=== PATIENT | male | born 1960 | race Asian ===

== ENCOUNTER → 2020-10-10 | Outpatient (CLI) | payer BC | LOC: US 12:32 | PROVIDERS: ATTEND Otolaryngology | DX: R22.1 Localized swelling, mass and lump, neck (principal) | CPT/HCPCS: 10005; 88112; 88172; 88173; 88305 ==

== ENCOUNTER 2021-02-22 05:30 | Observation (INO) | payer BC ==
[2021-02-20 08:46] LABS: BASOPHILS # (AUTO) 0.1 (0.0-0.1); BASOPHILS % 0.9 % (0.0-1.0); EOSINOPHILS # (AUTO) 0.5 (0.0-0.4); HEMATOCRIT 43.7 % (38.2-49.6); HEMOGLOBIN 14.5 g/dL (14.0-18.0); MEAN CORPUSCULAR HGB CONC 33.2 g/dL (31-35); MEAN CORPUSCULAR VOLUME 93.4 fL (81-99); MONOCYTES % 10.1 % (4.4-11.3); NEUTROPHILS # (AUTO) 5.4 (2.1-6.9); NEUTROPHILS % 53.6 % (38.7-80.0); PLATELET COUNT 301 x10e3/uL (140-360); RED BLOOD COUNT 4.68 x10e6/uL (4.3-5.7); RED CELL DISTRIBUTION WIDTH 12.8 % (11.7-14.4)
[2021-02-20 09:15] LABS: ANION GAP 12.8 mmol/L (8-16); BLOOD UREA NITROGEN 26 mg/dL (7-26); BUN/CREATININE RATIO 33 (6-25); CALCIUM 8.5 mg/dL (8.4-10.2); CARBON DIOXIDE 21 mmol/L (22-29); CHLORIDE 107 mmol/L (98-107); CREATININE, SERUM 0.78 mg/dL (0.72-1.25); EST GLOMERULAR FILTRATION RATE > 60 ML/MIN (60-); GLUCOSE 80 mg/dL (74-118); POTASSIUM 3.8 mmol/L (3.5-5.1); SODIUM 137 mmol/L (136-145)
[~2021-02-22] VITALS: Ht 167.6 cm; Wt 68.0 kg
[~2021-02-22 05:30] MED LIST: AMLODIPINE BESYL5 MG PO; FENOFIBRATE145 MG PO; IRBESARTAN-HCT1 EAC1 PO; JARDIANCE25 MG PO; LIPITOR10 MG PO; METFORMIN HCL500 MG PO; PLAVIX75 MG PO
[2021-02-22] MEDS ORDERED: ACETAMINOPHEN 1000 MG/100 ML 100 ML IV ONE (07:09)
[2021-02-22] MEDS ORDERED: LIDOCAINE HCL (LTA) 4 ML SOLN ONE (07:10)
[2021-02-22] MEDS ORDERED: OXYMETAZOLINE HCL 0.05% NAS 1 SPRAY BTL ONE (09:35)
[2021-02-22] MEDS ORDERED: SODIUM CHLORIDE 0.9% INJ 10 ML VIAL ONE (10:24)
[2021-02-22] MEDS ORDERED: EPINEPHRINE HCL 1:1000 1ML 1 MG/ML AMP ONE (10:24)
[2021-02-22 11:36] VITALS: BP 154/83
[2021-02-22 11:48] VITALS: BP 154/83
[2021-02-22] MEDS ORDERED: VASCEPA1 GM PO (11:48)
[2021-02-22] MEDS ORDERED: DEXAMETHASONE SOD PHOS INJ 4 MG/ML VIAL ONE (12:32)
[2021-02-22] MEDS ORDERED: EPHEDRINE SULFATE INJ 50 MG/ML VIAL ONE (12:32)
[2021-02-22] MEDS ORDERED: ROCURONIUM BROMIDE 10 MG/ML 5ML VIAL IV ONE (12:32)
[2021-02-22] MEDS ORDERED: ONDANSETRON HCL INJ 2MG/ML 2ML 2 MG/ML VIAL ONE (12:32)
[2021-02-22] MEDS ORDERED: SEVOFLURANE INHAL SOLN 250 ML PEN BTL ONE (12:32)
[2021-02-22] MEDS ORDERED: PROPOFOL IV EMULSION 10 MG/ML 20 ML VIAL ONE (12:32)
[2021-02-22] MEDS ORDERED: LIDOCAINE HCL 2% LOCAL INJ 5 ML SDV VIAL INJ ONE (12:32)
[2021-02-22] MEDS ORDERED: SUCCINYLCHOLINE CHLORIDE 20 MG/ML 10ML VIAL ONE (12:32)
[2021-02-22] MEDS ORDERED: LIDOCAINE HCL 2% JELLY 5 ML TUBE ONE (12:32)
[2021-02-22] MEDS ORDERED: ONDANSETRON HCL INJ 2MG/ML 2ML 2 MG/ML VIAL IV PRN (13:15)
[2021-02-22] MEDS ORDERED: HYDROCODONE/APAP 5MG-325MG TAB PO PRN ×2 (13:15)
[2021-02-22] MEDS ORDERED: FENTANYL CITRATE/PF 100MCG/2 ML INJ ONE (13:18)
[2021-02-22] MEDS ORDERED: MIDAZOLAM HCL 2 MG/2 ML VIAL ONE (13:18)
[2021-02-22] MEDS ORDERED: CEFAZOLIN SOD 1 GM VIAL IV SCH (14:00)
[2021-02-22] MEDS: SOD CHL 0.45%/POT CHL 20MEQ 1,000 ML IV SCH ×2 (15:37→23:30)
[2021-02-22] MEDS: CEFAZOLIN SOD 1 GM/NS 50ML 50 ML IV SCH ×2 (15:38→21:11)
[2021-02-22 16:12] VITALS: BP 125/79
[2021-02-22 20:00] VITALS: BP 115/72
[2021-02-22 20:10] VITALS: BP 115/72
[2021-02-22] MEDS ORDERED: ATORVASTATIN 20 MG TAB PO SCH (21:00)
[2021-02-23] VITALS: BP 126/67
[2021-02-23 04:00] VITALS: BP 128/67
[2021-02-23] MEDS: SOD CHL 0.45%/POT CHL 20MEQ 1,000 ML IV SCH (06:45)
[2021-02-23 08:14] VITALS: BP 141/72
[2021-02-23 08:59] VITALS: BP 141/72
[2021-02-23] MEDS ORDERED: IRBESARTAN 150 MG TAB PO SCH (09:00)
[2021-02-23] MEDS ORDERED: HOME MEDICATION--PATIENTS OWN PO SCH ×2 (09:00)
[2021-02-23] MEDS ORDERED: AMLODIPINE BESYLATE 5 MG TAB PO SCH (09:00)
[2021-02-23] MEDS ORDERED: HYDROCHLOROTHIAZIDE 25 MG TAB PO SCH (09:00)
[2021-02-23] MEDS ORDERED: METFORMIN HCL 500 MG TAB PO SCH (09:00)
[2021-02-23] MEDS: CEFAZOLIN SOD 1 GM/NS 50ML 50 ML IV SCH (09:15)
== END 2021-02-23 09:47 | disposition home or self-care (01) ==
LOC: OR 05:30 → PACU V 10:14 → MED/SURG 11:09
PROVIDERS: ADMIT Otolaryngology; ATTEND Otolaryngology
DX: D11.0 Benign neoplasm of parotid gland (principal); J38.7 Other diseases of larynx; I25.10 Atherosclerotic heart disease of native coronary artery without angina pectoris; I12.9 Hypertensive chronic kidney disease with stage 1 through stage 4 chronic kidney disease, or unspecified chronic kidney disease; N18.4 Chronic kidney disease, stage 4 (severe); Z20.822 Contact with and (suspected) exposure to COVID-19; Z01.818 Encounter for other preprocedural examination
CPT/HCPCS: 31541; 36415 ×3; 42410; 71046; 80048; 82948 ×2; 85025; 86850; 86900; 88305; 88307; 88331; 93005; G0378 ×2; J0131; J0171; J0330; J0690 ×2; J1100; J2001 ×2; J2250; J2405; J2704; J3010; U0002; 88172; 88173

== ENCOUNTER → 2021-10-23 | Outpatient (CLI) | payer BC ==
[~2021-10-23] MED LIST changes: +LIDOCAINE HCL 1% LOCAL INJ 20 ML VIAL ONE; +VASCEPA1 GM PO
== END ==
LOC: US 08:28
PROVIDERS: ATTEND Otolaryngology
DX: R59.0 Localized enlarged lymph nodes (principal)
CPT/HCPCS: 38505; 76942; 88173; 88305; J2001; 88112

== ENCOUNTER → 2024-12-21 | Outpatient (REF) | payer MEDICARE, OTHER ==
[~2024-12-21] MED LIST changes: +LIDOCAINE HCL 1% 30ML-PF VIAL ONE; -LIDOCAINE HCL 1% LOCAL INJ 20 ML VIAL ONE
== END ==
LOC: US 10:11
PROVIDERS: ATTEND Otolaryngology
DX: R22.1 Localized swelling, mass and lump, neck (principal)
CPT/HCPCS: 10005; 88172; 88173; 88305; J2003; 88112

== ENCOUNTER 2025-03-24 05:37 | Observation (INO) | payer MEDICARE, OTHER ==
[2025-03-15 10:53] LABS: BASOPHILS # (AUTO) 0.1 (0.0-0.1); BASOPHILS % 0.6 % (0.0-1.0); EOSINOPHILS # (AUTO) 0.2 (0.0-0.4); EOSINOPHILS % 1.5 % (0.0-6.0); HEMATOCRIT 48.4 % (38.2-49.6); HEMOGLOBIN 16.3 g/dL (14.0-18.0); LYMPHOCYTES # (AUTO) 2.2 (1.0-3.2); LYMPHOCYTES % 17.4 % (18.0-39.1); MEAN CORPUSCULAR HEMOGLOBIN 31.2 pg (28-32); MEAN CORPUSCULAR HGB CONC 33.7 g/dL (31-35); MEAN CORPUSCULAR VOLUME 92.5 fL (81-99); MONOCYTES # (AUTO) 0.7 (0.2-0.8); MONOCYTES % 5.9 % (4.4-11.3); NEUTROPHILS # (AUTO) 9.4 (2.1-6.9); NEUTROPHILS % 74.3 % (38.7-80.0); PLATELET COUNT 257 x10e3/uL (140-360); RED BLOOD COUNT 5.23 x10e6/uL (4.3-5.7); RED CELL DISTRIBUTION WIDTH 13.3 % (11.7-14.4)
[2025-03-15 11:16] LABS: ANION GAP 15.7 mmol/L (8-16); CALCIUM 8.9 mg/dL (8.4-10.2); CREATININE, SERUM 0.74 mg/dL (0.72-1.25); POTASSIUM 3.7 mmol/L (3.5-5.1)
[2025-03-24] VITALS (7 sets, daily range): BP systolic 101–137; BP diastolic 55–80; PULSE 64–75; RESP 17–19; TEMP 97–98.6; O2SAT 97–100
[~2025-03-24] VITALS: Ht 170.2 cm; Wt 70.3 kg
[~2025-03-24 05:37] MED LIST changes: -LIDOCAINE HCL 1% 30ML-PF VIAL ONE
[2025-03-24] MEDS: LACTATED RINGER'S 1,000 ML ONE (06:04)
[2025-03-24] MEDS ORDERED: ROCURONIUM BROMIDE 1 ML IV ONE (06:40)
[2025-03-24] MEDS ORDERED: FENTANYL CITRATE/PF 100MCG/2 ML INJ ONE ×2 (06:40→08:15)
[2025-03-24] MEDS ORDERED: PROPOFOL IV EMULSION 10 MG/ML 20 ML VIAL ONE (06:40)
[2025-03-24] MEDS ORDERED: LIDOCAINE HCL 2% LOCAL INJ 5 ML SDV VIAL INJ ONE (06:41)
[2025-03-24] MEDS ORDERED: SUCCINYLCHOLINE CHLORIDE 20 MG/ML 10ML VIAL ONE (06:41)
[2025-03-24] MEDS ORDERED: SODIUM CHLORIDE 0.9% INJ 10 ML VIAL ONE (06:58)
[2025-03-24] MEDS ORDERED: MIDAZOLAM HCL 2 MG/2 ML VIAL ONE (06:59)
[2025-03-24] MEDS ORDERED: DEXAMETHASONE SOD PHOS INJ 4 MG/ML SDV ONE (07:17)
[2025-03-24] MEDS ORDERED: ONDANSETRON HCL INJ 2MG/ML 2ML 2 MG/ML VIAL ONE (07:17)
[2025-03-24] MEDS ORDERED: ACETAMINOPHEN 1000 MG/100 ML 100 ML IV ONE (07:21)
[2025-03-24] MEDS ORDERED: EPHEDRINE SULFATE INJ 50 MG/ML VIAL ONE (07:26)
[2025-03-24] MEDS ORDERED: ONDANSETRON HCL INJ 2MG/ML 2ML 2 MG/ML VIAL IV PRN (10:00)
[2025-03-24] MEDS ORDERED: HYDROCODONE/APAP 5MG-325MG TAB PO PRN (10:00)
[2025-03-24] MEDS ORDERED: SODIUM CHLORIDE FLUSH 10 ML SYR INJ PRN (12:30)
[2025-03-24] MEDS: SOD CHL 0.45%/POT CHL 20MEQ 1,000 ML IV SCH (14:10)
[2025-03-24] MEDS: ATORVASTATIN 20 MG TAB PO SCH (21:01)
[2025-03-25 03:20] VITALS: BP 103/63; PULSE 81; RESP 18; TEMP 98; O2SAT 100
[2025-03-25 07:50] VITALS: BP 112/69; PULSE 62; RESP 18; TEMP 98.3; O2SAT 99
[2025-03-25] MEDS ORDERED: METFORMIN HCL 500 MG TAB PO SCH (08:00)
[2025-03-25 08:37] VITALS: BP 112/69; PULSE 62; RESP 18; TEMP 98.3; O2SAT 99
[2025-03-25] MEDS ORDERED: AMLODIPINE BESYLATE 5 MG TAB PO SCH (09:00)
== END 2025-03-25 08:35 | disposition home or self-care (01) ==
LOC: OR 05:37 → PACU V 09:29 → MED/SURG2 10:46
PROVIDERS: ADMIT Otolaryngology; ATTEND Otolaryngology
DX: D11.0 Benign neoplasm of parotid gland (principal); E11.9 Type 2 diabetes mellitus without complications; I10 Essential (primary) hypertension; E78.00 Pure hypercholesterolemia, unspecified; Z01.810 Encounter for preprocedural cardiovascular examination; Z01.812 Encounter for preprocedural laboratory examination; Z01.818 Encounter for other preprocedural examination
CPT/HCPCS: 36415 ×3; 42415; 71046; 80048; 82948 ×2; 85025; 86850; 86900; 88305; 93005; C1713; G0378 ×2; J0131; J0330; J0690 ×2; J1100; J2003; J2250; J2405; J2704; J3010; J7121; 88304